=== PATIENT | female | born 1950 | race Caucasian/White ===

== ENCOUNTER 2022-11-24 15:45 | Outpatient (CLI) | payer MEDICARE, OTHER, SELFPAY ==
--- NOTE | ~2022-11-24 | DEXA_ITS ---
Bone Density Report Name: RUBIN VARGAS Age: 72 Sex: Female Ethnicity: White Date of : 1950 Indication: postmenopausal; screening for osteoporosis; height loss; Referring Provider: BETTY SIMMONS Study: Bone densitometry was performed. Exam Date: November 24, 2022 Accession number: [id number] Bone Density: Region BMD T-score Z-score Classification AP Spine(L1-L4) 1.188 1.3 3.4 Normal Femoral Neck (Left) 0.905 0.5 2.3 Normal Total Hip (Left) 1.011 0.6 2.1 Normal Femoral Neck (Right) 0.857 0.1 1.9 Normal Total Hip (Right) 0.987 0.4 1.9 Normal Total Hip Mean 0.999 0.5 2.0 Normal World Health Organization criteria for BMD impression classify patients as: Normal (T-score at or above -1.0), Osteopenia (T-score between -1.0 and -2.5), or Osteoporosis (T-score at or below -2.5). 10-year Fracture Risk: FRAX not reported because: All T-scores for Spine Total, Hip Total, Femoral Neck at or above -1.0 Clinical Information Provided by Patient: Patient maximum height was 66 Menopause Age: 49 No regular weight bearing exercise Drinks caffeinated beverages Onset of menses at age 13 Number of children 1 Impression: The patient has normal bone mass. Discussion: BONE DENSITY IS ABOVE THE MINIMUM DESIRABLE LEVEL AT ALL SKELETAL SITES TESTED. This patient?s bone mineral density is above the minimum desirable level (T-score -1.0 or better) at all sites measured. The patient should follow a healthful lifestyle (good nutrition with adequate calcium and vitamin D, and appropriate weight-bearing exercise). Follow-Up: Consider repeating this study in 5 years or sooner if there is some new clinical indication. Reported by: RAFAT on 11/24/2022 4:18:00 PM. Reviewed, dictated and finalized at location [facility]
== END 2022-11-24 15:46 | disposition home or self-care (01) ==
PROVIDERS: PCP Physician Assistant Medical; Visit Provider Internal Medicine Endocrinology, Diabetes & Metabolism
DX: Z78.0 Asymptomatic menopausal state (principal)
CPT/HCPCS: 77080

== ENCOUNTER 2023-04-08 04:07 | Day surgery (SDC) | payer MEDICARE, OTHER, SELFPAY ==
[2023-03-11 08:45] VITALS: BMI 28.8
--- NOTE | 2023-04-06 09:16 | SUR.PREOP ---
Patient called regarding upcoming procedure. Reviewed preop instructions, appointment times, and procedure prep.
[2023-04-08 06:48] VITALS: BP 168/68; PULSE 77; RESP 16; TEMP 36.6; O2SAT 100
[2023-04-08] MEDS: LACTATED RINGERS 1,000 ML 150 ML IV CONT (07:02)
[2023-04-08 07:04] LABS: Glucose Point of Care 130 mg/dl (65-105)
--- NOTE | 2023-04-08 07:33 | WPDANESEPPF ---
Anes - Initial Pre Proc Eval Procedure: Operation Date: 04/08/23 08:00 Proposed Procedures p Screening Colonoscopy - Matt Augustine MD Date/Time: 04/08/23 07:33 Surgeon: Matt Augustine MD Pre Op Diagnosis: neoplasm screening Patient Data Age: 73 Gender: F Height: 1.65 m Weight: 78.1 kg Last Vital Signs Temp 97.8 F 04/08/23 06:48 Pulse 77 04/08/23 06:48 Resp 16 04/08/23 06:48 BP 168/68 H 04/08/23 06:48 Pulse Ox 100 04/08/23 06:48 O2 Del Method Room Air 04/08/23 06:48 Allergies Allergy/AdvReac Type Severity Reaction Status Date / Time No Known Allergies Allergy Verified 04/08/23 06:44 Home Medications Medication Instructions Recorded Confirmed Type aspirin 81 mg tablet,delayed 81 mg PO DAILY 03/31/19 04/08/23 History release (Adult Low Dose Aspirin) multivitamin 1 tablet PO DAILY 03/31/19 04/08/23 History cholecalciferol (vitamin D3) 100 100 mcg PO DAILY 01/28/22 04/08/23 History mcg (4,000 unit) tablet echinacea 500 mg capsule 50 mg PO BID 01/28/22 04/08/23 History quercetin 500 mg capsule 500 mg PO DAILY 01/28/22 04/08/23 History dapagliflozin propanediol 10 mg 10 mg PO DAILY 90 days #90 tabs 09/01/22 04/08/23 Rx tablet semaglutide 1 mg/dose (4 mg/3 mL) 1 mg (0.75 mL) subcut WEEKLY 09/01/22 04/08/23 Rx subcutaneous pen injector days #9.75 mL irbesartan 300 mg tablet See Rx Instructions .Route 02/12/23 04/08/23 Rx .COMPLEX #90 tabs gabapentin 100 mg capsule See Rx Instructions .Route 02/17/23 04/08/23 Rx .COMPLEX #30 caps metoprolol succinate 25 mg See Rx Instructions .Route 02/17/23 04/08/23 Rx tablet,extended release 24 hr .COMPLEX #90 tabs rosuvastatin 5 mg tablet 5 mg PO DAILY #90 tabs 02/17/23 04/08/23 Rx Laboratory Tests 04/08/23 07:01 POC Capillary Glucose 130 H mg/dl (65-105) Patient hx anesthesia problems: none Family hx anesthesia problems: none Results Review: All pre-operative results and documents have been reviewed as part of the pre-operative evaluation. [facility] Past Medical History Medical History Chest pain in adult Diabetes 1.5, managed as type 2 Diabetes mellitus DE LA PAZ (dyspnea on exertion) Essential hypertension Hypersomnia Obesity (BMI 30.0-34.9) Palpitations with regular cardiac rhythm Screening for colon cancer URI (upper respiratory infection) Family History Family History Father Diabetes mellitus Family history of cardiovascular disease Mother Hypertension Cerebrovascular accident Grandparent Hypertension Family history of cardiovascular disease Social History Social History Smoking packs per day: 1.5 Smoking cigarettes per day: 30.0 Years smoked: 20 Smoking pack-years: 30.00 Smoking status: Former smoker Tobacco type: cigarettes Smoking end date: 05/20/82 Alcohol intake: current Drinks per week: 1 Substance use: never Substance use type: does not use Lack of Transportation: No Lack of Food: Never True Current Housing: I Have Housing Concerned About Future Housing: No Difficulty Paying Gas/Electric Bills: No Difficulty Paying for Meds: No Currently Unemployed: No Difficulty w/ Childcare or Family Care: No Living arrangements: with family Occupation/Education: retired Gender identity (if verbalized by the patient): Female Sexual Orientation (if Verbalized by the Patient): Straight or Heterosexual Spiritual care concerns: No Anes - Eval Final PreProcedure Day of Procedure 04/08/23 07:33 Patient weight: normal Heart: regular rate and rhythm Lungs: clear to auscultation Airway: Mallampati scale class II Neurological: alert and oriented Last oral intake: >/= 8 hours ASA classification: III Emergent: no Anesthetic plan: proceed Anesthesia type and monit
--- NOTE | 2023-04-08 07:57 | PM.HPGS ---
History of Present Illness History of Present Illness Consent: Risks, benefits, and alternatives have been discussed and questions answered. Patient agrees to proceed with procedure. Chief complaint: neoplasm screening Narrative: Samara Gordon is a 73 year old female with screening colonoscopy, last one 10 years ago Review of Systems Constitutional: Constitutional: Denies headache(s) and Denies weakness Eyes: Eyes: Denies blurry vision ENT: Reports Normal hearing present, Denies headache(s) and Denies neck pain Cardiovascular: Cardiovascular: Denies chest pain and Denies dyspnea Respiratory: Respiratory: Denies dyspnea Gastrointestinal: Gastrointestinal: Reports no additional gastrointestinal complaints Genitourinary: Genitourinary: Denies dysuria Musculoskeletal: Musculoskeletal: Denies neck pain Integumentary/Breasts: Skin/Breast: Denies dry skin Neurologic: Reports Normal hearing present, Denies headache(s) and Denies weakness Psychiatric: Psychiatric: Denies anxiety Endocrine: Endocrine: Denies change in body appearance Hematologic/Lymphatic: Hematologic/Lymphatic: Denies easy bleeding Allergic/Immunologic: Allergic/Immunologic: Denies urticaria PMFSH Past Medical History Medical History Chest pain in adult Diabetes 1.5, managed as type 2 Diabetes mellitus DE LA PAZ (dyspnea on exertion) Essential hypertension Hypersomnia Obesity (BMI 30.0-34.9) Palpitations with regular cardiac rhythm Screening for colon cancer URI (upper respiratory infection) Family History Family History Father Diabetes mellitus Family history of cardiovascular disease Mother Hypertension Cerebrovascular accident Grandparent Hypertension Family history of cardiovascular disease Social History Social History Smoking packs per day: 1.5 Smoking cigarettes per day: 30.0 Years smoked: 20 Smoking pack-years: 30.00 Smoking status: Former smoker Tobacco type: cigarettes Smoking end date: 05/20/82 Alcohol intake: current Drinks per week: 1 Substance use: never Substance use type: does not use Lack of Transportation: No Lack of Food: Never True Current Housing: I Have Housing Concerned About Future Housing: No Difficulty Paying Gas/Electric Bills: No Difficulty Paying for Meds: No Currently Unemployed: No Difficulty w/ Childcare or Family Care: No Living arrangements: with family Occupation/Education: retired Gender identity (if verbalized by the patient): Female Sexual Orientation (if Verbalized by the Patient): Straight or Heterosexual Spiritual care concerns: No Meds Home Medications and Allergies Home Medications Medication Instructions Recorded Confirmed Type aspirin 81 mg tablet,delayed 81 mg PO DAILY 03/31/19 04/08/23 History release (Adult Low Dose Aspirin) multivitamin 1 tablet PO DAILY 03/31/19 04/08/23 History cholecalciferol (vitamin D3) 100 100 mcg PO DAILY 01/28/22 04/08/23 History mcg (4,000 unit) tablet echinacea 500 mg capsule 50 mg PO BID 01/28/22 04/08/23 History quercetin 500 mg capsule 500 mg PO DAILY 01/28/22 04/08/23 History dapagliflozin propanediol 10 mg 10 mg PO DAILY 90 days #90 tabs 09/01/22 04/08/23 Rx tablet semaglutide 1 mg/dose (4 mg/3 mL) 1 mg (0.75 mL) subcut WEEKLY 09/01/22 04/08/23 Rx subcutaneous pen injector days #9.75 mL irbesartan 300 mg tablet See Rx Instructions .Route 02/12/23 04/08/23 Rx .COMPLEX #90 tabs gabapentin 100 mg capsule See Rx Instructions .Route 02/17/23 04/08/23 Rx .COMPLEX #30 caps metoprolol succinate 25 mg See Rx Instructions .Route 02/17/23 04/08/23 Rx tablet,extended release 24 hr .COMPLEX #90 tabs rosuvastatin 5 mg tablet 5 mg PO DAILY #90 tabs 02/17/23 04/08/23 Rx Allergies Allergy/AdvReac Type Severity Reaction Status D
[2023-04-08 08:17] VITALS: BP 127/68; PULSE 72; RESP 22; O2SAT 100
[2023-04-08 08:27] VITALS: BP 129/102; PULSE 68; RESP 18; O2SAT 100
[2023-04-08 08:37] VITALS: BP 122/70; PULSE 67; RESP 17; O2SAT 100
== END 2023-04-08 08:45 | disposition home or self-care (01) ==
PROVIDERS: PCP Family Medicine; Visit Provider Internal Medicine Gastroenterology
PROC: 0DJD8ZZ Inspection of Lower Intestinal Tract, Via Natural or Artificial Opening Endoscopic (ICD-10-PCS; CPT 45378; principal; 2023-04-08 08:00)
DX: Z12.11 Encounter for screening for malignant neoplasm of colon (principal); E11.9 Type 2 diabetes mellitus without complications; I10 Essential (primary) hypertension; G47.10 Hypersomnia, unspecified; Z79.82 Long term (current) use of aspirin; Z79.85 Long-term (current) use of injectable non-insulin antidiabetic drugs; Z87.891 Personal history of nicotine dependence; Z82.49 Family history of ischemic heart disease and other diseases of the circulatory system
CPT/HCPCS: G0121; 82948; J2704; J7120

== ENCOUNTER 2025-03-16 12:53 | Outpatient (CLI) | payer MEDICARE, OTHER, SELFPAY ==
--- NOTE | ~2025-03-16 | CT_ITS ---
CT abdomen pelvis w con INDICATION:GROSS HEMATURIA . COMPARISON: None. TECHNIQUE: Axial images of the abdomen and pelvis were obtained following infusion of 100 mL Isovue 300. Dose optimization technique was utilized. FINDINGS: The lung bases are clear. The liver parenchyma is unremarkable. No intrahepatic mass or ductal dilatation is evident. The gallbladder is unremarkable. The pancreas and spleen are normal in appearance. The adrenal glands are symmetric in size. The kidneys demonstrate symmetric uptake and excretion of contrast. Peripelvic cysts and parenchymal cysts are present bilaterally. There is no solid mass. There is no hydronephrosis. The stomach and bowel loops are unremarkable. The appendix is normal in appearance. The bladder and rectum are normal. No free intraperitoneal fluid or air is evident. There is no significant retroperitoneal lymphadenopathy. The aorta, visceral vessels and renal arteries demonstrate normal caliber and patency. The lower thoracic and lumbar vertebrae are in normal alignment. IMPRESSION: No acute abnormality is noted in the abdomen and pelvis. Peripelvic cysts and parenchymal cysts noted in the kidneys bilaterally. No solid mass seen. All CT scans at this facility are performed using low dose modulation techniques as appropriate to perform exam including the following: automated exposure control; use of iterative reconstruction technique; adjustment of the mA and/or kV according to patient size (this includes techniques or standardized protocols for targeted exams where dose is matched to indication/reason for exam). Reviewed, dictated and finalized at location S. UCTION LINE MECHANIC IMPRESSION: No acute abnormality is noted in the abdomen and pelvis. Peripelvic cysts and parenchymal cysts noted in the kidneys bilaterally. No regina id mass seen. All CT scans at this facility are performed using low dose modulation techniqu es as appropriate to perform exam including the following: automated exposure c ontrol; use of iterative reconstruction technique; adjustment of the mA and/or kV according to patient size (this includes techniques or standardized protocol s for targeted exams where dose is matched to indication/reason for exam).
--- OUTSIDE RECORDS SUMMARY | 2025-03-16 12:59 | XMS_ITS | Encounter Summary ---
Author Organization [facility] Address [address] [place] [address] Care Team Providers Care Dermatology Teacher Name Role Phone Unavailable Primary Care Provider Unavailabl e Encounter Details Date Type Department Care Team (Late st Contact Info) Description 12/11/2004 Outpatient Historical [place] [address] [address] SCREENING MAMM-MAILG NEOPL NEC (Primary Dx) Social History Tobacco Use Types Packs/Day Years Used Date Smoking Tobacco: Never Assessed Comments Unknown Sex and Gender Information Value Date Recorded Sex Assigned at Not on file Legal Sex Female 5:22 AM [employer] Gender Identity Not on file Sexual Orientation Not on file documented as of this encounter Plan of Treatment Not on file documented as of this encounter Visit Diagnoses Diagnosis Other screening mammogram- Primary documented in this encounter
--- OUTSIDE RECORDS SUMMARY | 2025-03-16 12:59 | XMS_ITS | Clinical Summary ---
Author Organization [facility] Address [address] Attn: Epic Prelude ADT SHRUTI SANDERS [address] Care Team Providers Care Stock Puller Name Role Phone Unavailable Primary Care Provider Unavailabl e Social History Tobacco Use Types Packs/Day Years Used Date Smoking Tobacco: Never Assessed Comments Unknown Sex and Gender Information Value Date Recorded Sex Assigned at Not on file Legal Sex Female 5:22 AM [employer] Gender Identity Not on file Sexual Orientation Not on file Plan of Treatment Health Maintenance Due Date Last Done Comments DTAP/TDAP/TD VACCINES (1 - Tdap) 1971 BREAST CANCER SCREENING 1992 COLORECTAL SCREENING 1997 Colorectal Cancer Screening 1997 FIT-DNA Q 3 years 1997 FIT/FOBT Q 1 year 1997 Flex Sig/CT Colonography Q 5 years 1997 PNEUMOCOCCAL VACCINE 50+ YEARS (1 of 1 - PCV) 04/03/19 03 ZOSTER VACCINE (1 of 2) 2002 OSTEOPOROSIS SCREENING 2017 INFLUENZA VACCINE (#1) 2024 RSV VACCINE (60+ or ) (1 - 1-dose 75+ series) 2027
--- OUTSIDE RECORDS SUMMARY | 2025-03-16 12:59 | XMS_ITS | Continuity of Care Document ---
Author Organization [employer], [facility] Kiran Mares Address [address] [place] [address] Care Team Providers Care Home Worker Name Role Phone SHERRILL LAI Primary Care Provider [phone] SHERRILL LAI Referring Provider [phone] Assessment Encounter Date Assessment Date Assessment LastModified by Organization Details LastModified Time 01/04/2025 01/04/2025 The patient has resolved left knee pain she has mild primary osteoarthritis she is continuing with her home exercise program and has been instructed by formal physical therapy on what to do daily. She is continuing with diclofenac 75 mg b.i.d. if she wants to she can try to wean off of that see how she feels without it. If her pain starts to return I have advised her to continue it. We could do another shot of cortisone in 6 weeks if necessary hopefully she will get long chain beamer relief. We also have talked about gel shots previously. She voiced understanding agrees above plan I will see her back as needed she will call for any further problems difficulties or questions. [email or web address] Not available 01/04/2025 14:27:09 Plan of Treatment Reminders Order Date Submit Date Provider Last Modified By Organization Details Last Modified Time Details Appointments None record ed. Lab None record ed. Referral None record ed. Procedures None record ed. Surgeries None record ed. Imaging None record ed. Medication Orders None record ed. Patient TargetsNo targets recorded. Patient InstructionsNo instructions recorded. Reason for Referral None Reported. Problems Name Problem SNOMED Code Status Onset Date Resolution Date Notes Provider Name and Address Organization Details Recorded Time Pain of left knee joint 7435114310672 07 Active 2024 RUY Zavala, [employer] 5 13:42:59 Osteoarthri tis of left knee joint 5816269733218 09 Active 2024 SHIV Gage [address], [place], [address], [employer] 14:06:18 Problem Notes None recorded. Medical Equipment None Reported. Allergies No known drug allergies Medications Name Sig Start Date Stop Date Status Note LastModified by Organization Details LastModified Time bupivacaine HCl 0.5 % (5 mg/mL) injection solution Take 20 mg by injection route. 2024 active Not Available Not Available Not Avai lable tramadol 50 mg tablet TAKE 1 TABLET BY MOUTH TWICE A DAY NEEDED FOR PAIN 11/23 completed Not Available Not Available Not Available Kenalog 10 mg/mL suspension for injection Take 20 mg by injection route. 2024 active [facility]: [phone] Not Available Not Available Not Available gabapentin 300 mg capsule PLEASE SEE ATTACHED FOR DETAILED DIRECTION S active Not Available Not Available No t Available diclofenac sodium 75 mg tablet,nanette yed release TAKE 1 TABLET BY MOUTH TWICE A DAY 2024 active Not Available Not Available Not Avai lable diclofenac sodium 50 mg tablet,nanette yed release TAKE 1 TABLET BY MOUTH EVERY DAY FOR 30 DAYS 11/23 completed Not Available Not Available Not Available metoprolol succinate ER 25 mg tablet,exte nded release 24 hr TAKE 1 TABLET BY MOUTH EVERY DAY active Not Available Not Available No t Available irbesartan 300 mg tablet TAKE 1 TABLET BY MOUTH EVERY DAY active Not Available Not Available No t Available rosuvastati n 5 mg tablet TAKE 1 TABLET BY MOUTH EVERY DAY active Not Available Not Available No t Available nitrofurant oin monohydrate /macrocryst als 100 mg capsule TAKE 1 CAPSULE BY MOUTH EVERY 12 HOURS FOR 3 DAYS. MUST TAKE WITH A MEAL/FOOD 11/23 completed Not Available Not Available Not Available dapaglifloz in propanediol 10 mg tablet TAKE 1 TABLET BY MOUTH EVERY DAY active Not Available Not Available No t Available Ozempic 1 mg/dose (4 mg/3 mL) subcutaneou s pen injector INJECT 1 MG (0.75 ML) SUBCUTANE OUSLY WEEKLY 11/23 completed Not Available Not Available Not Available Ozempic 2 mg/dose (8 mg/3 mL) subcutaneou s pen injector INJECT 2 MG (0.75 ML) SUBCUTANE OUSLY WEEKLY active Not Available Not Available No t Available Vitals Date Recorded Body height Body mass index (BMI) Body weight Provider Name and Address Organization Details Last Updated DateTime 01/04/2025 166.37 cm 27 kg/m2 39692.74 g Juani OliverRUY young [facility] [employer] 01/04/2025 14:09:26 Social History Question Answer Notes LastModified by Organizat [employer] Details LastModified Time Tobacco Smoking Status Former Smoker Juani OliverRUY young null, [facility] [employer] 11/23/2024 13:48:05 When Did You Quit Smoking? 18+yearssin félix brownlee Quit In 1982 After Smoking 1.5 Ppd For 16 Yrs Information not available 11/23/2024 What Was The Date Of Your Most Recent Tobacco Screening? 01/04/2025 Information not available 01/04/2025 Sex: Unknown Functional Status Question Answer Note LastModified by Organizat ion Details LastModified Time What is your level of alcohol consumption? Occasional Information not available 11/23/2024 Mental Status None recorded. Family History Relationship Description Onset Age of this Age Resolved Age Notes LastModified by Organization Details LastModified Time Father Heart disease Not available 2024 13:46:00 Father Diabetes mellitus Not available 2024 13:47:11 Mother History of cerebrovascu lar accident Not available 06/2024 13:46:40 Mother Hypertensive disorder Not available 2024 13:46:59 Medical History Condition Response DIABETES, TYPE Y HYPERTENSION Y Gynecological HistoryNo gynecological history recorded. Obstetrics History GPAL:G 0 P 0 0 0 0 Past Encounters Encounter ID Performer Location Encounter Start Date Encounter Closed Date Diagnosis/Indication Diagnosis SNOMED-CT Code Diagnosis ICD10 Code Diagnosis IMO Codes Diagnosis Note [id number] Bill Doty MD [facility] [address] [place] [address] 01/04/2025 13:56:00 01/04/2025 14:30:33 Osteoarthritis of left knee joint 0857231318 03413 M17.12 6659136 Pain of le ft knee joint 0027582055 60454 M25.562 [id number] Health Concerns Section Related Observation LastModified by Organization Detai ls LastModified Time None Recorded Concern Status LastModified by Organization Details LastModified Time None Recorded Payers Encounter Date Sequence Insurance Name Policy Number Policy Soares Covered Member ID Soares Member ID Guarantor Name 01/04/2025 1 [place] Samara Gordon [id number] Samara Sway 01/04/2025 2 [employer] (POS) [id number] Samara Estrada Sway [id number] Samara Sway Notes Date Note Type Note Provider Name and Address Organization Details Recorded Time 01/04/2025 text/html The patient returns for recheck of her left knee. I saw her 6 weeks ago we did a shot of cortisone ordered physical therapy and diclofenac 75 mg b.i.d.. She states this has helped tremendously she now has no pain at all. She states she is very pleased with the treatment results. Her x-rays showed mild narrowing of the medial compartment in the patellofemoral articulation of the left knee. She had had no trauma or injury. She was having quite a bit of pain and tried home treatment on her own without significant relief. Previously her pain was 5 on a scale of 1-10 now it is 0 she comes in today for recheck status post treatment. SHIV Gage [address], [place], [address], [facility] [employer] 01/04/2025 14:27:33 OBGyn Episode No OBEpisode recorded.
--- OUTSIDE RECORDS SUMMARY | 2025-03-16 12:59 | XMS_ITS | Clinical Summary ---
Author Organization [facility] Address [address] [place] [address] Care Team Providers Care Synthetic Gem Press Operator Name Role Phone Ayo Sauer MD Primary Care Provider [phone] Allergies No known active allergies Medications No known medications Encounters Date Type Department Care Team Description 02/22/2025 12:52 PM SLIVER CUTTER - 02/22/2025 11:59 PM SLIVER CUTTER Hospital Encounter [facility] [address] [place], [place] [id number] Antoinette Jessica NP Discharge Disposition: Home or Self Care (Routine Discharge) 02/22/2025 Travel from Last 3 Months Social History Tobacco Use Types Packs/Day Years Used Date Smoking Tobacco: Former Smokeless Tobacco: Never Alcohol Use Standard Drinks/Week Comments Yes 0 (1 standard drink = 0.6 oz pur e alcohol) socially Comments No Sex and Gender Information Value Date Recorded Sex Assigned at Female 02/22/2025 9:34 AM SLIVER CUTTER Legal Sex Female 8:11 PM CDT Gender Identity Not on file Sexual Orientation Not on file Last Filed Vital Signs Vital Sign Reading Time Taken Comments Blood Pressure 148/61 06/08/2020 5:11 PM CDT Pulse 77 06/08/2020 5:11 PM CDT Temperature 37.3 C (99.1 F) 06/08/2020 5:11 PM CDT Respiratory Rate 16 06/08/2020 5:11 PM CDT Oxygen Saturation 97% 06/08/2020 5:11 PM CDT Inhaled Oxygen Concentration - - Weight 83.9 kg (185 lb) 06/08/2020 5:11 PM CDT Height 167.6 cm (5' 6) 06/08/2020 5:11 PM CDT Body Mass Index 29.86 06/08/2020 5:11 PM CDT Plan of Treatment Health Maintenance Due Date Last Done Comments Colorectal Cancer Screening Colonoscopy (10 Years) 1952 Hepatitis C 1970 DTaP, Tdap and Td Vaccines ( 1 - Tdap) 1971 Zoster Vaccines (1 of 2) 2002 Annual Medicare Wellness Visit 2017 Dexa Scan (General) 2017 Pneumococcal Vaccine: 50+ Years (2 of 2 - PCV20 or PCV21) 12/22/2019 12/21/2018 Mammogram Screening 06/24/2023 06/23/2021 COVID-19 Vaccine (3 - 2024-2 6 season) 2024 06/30/2020, 06/06/2020 Influenza Adult (#1) 2024 01/29/2023, 12/21/2018 RSV Immunization or 60+ Years (1 - 1-dose 75+ series) 2027 Hepatitis A Vaccines Aged Out No long er eligible based on patient's age to complete this topic Meningococcal B Vaccine Aged Out No l onger eligible based on patient's age to complete this topic Meningococcal Vaccine Aged Out No andry shakir eligible based on patient's age to complete this topic RSV Immunizations Under 20 Months Aged Out No longer eligible b ased on patient's age to complete this topic Procedures Procedure Name Priority Date/Time Associated Diagnosis Comments CT ABD+PEL WO CON STAT 02/22/2025 1:1 8 PM SLIVER CUTTER Flank pain, unspecified side MG SCREENING W DEYVI FRED DIGI Routine 06/23/2021 9:12 AM CDT Visit for screening mammogram from Last 3 Months or Most Recently Relevant to Health Maintenance Results * CT ABD+PEL WO CON (02/22/2025 1:18 PM SLIVER CUTTER) Anatomical Region Laterality Modality Abdomen Computed Tomogra phy 02/22/2025 1:46 PM SLIVER CUTTER Impressions 02/22/2025 2:43 PM SLIVER CUTTER IMPRESSION: 1. Interval development of mild edematous appearance to the inferior left kidney with mild adjacent fatty infiltration. May be due to mild pyelonephritis. 2. Stable moderate prominence of the left renal pelvis. Possibility of left UPJ stenosis is a consideration. 3. Mild interval growth of 4 mm calculus in lower pole right kidney. Punctate nonobstructing calculus in lower pole left kidney. 4. Moderate coronary artery calcifications. Referred By: ANTOINETTE JESSICA Interpreted By: Cleveland Torres MD, 02/22/2025 1:46 PM Narrative 02/22/2025 2:43 PM SLIVER CUTTER [facility] [address] [facility] [place] [address] EXAMINATION: CT Abdomen and Pelvis without contrast EXAM DATE/TIME: 02/22/2025 12:59 PM REASON FOR EXAM: Flank pain Low back pain with dysuria for one week. History of renal calculi COMPARISON: 06/12/2020 TECHNIQUE: Axial imaging of the abdomen and pelvis was obtained without intravenous contrast. A dose lowering technique was used for this procedure, which may include, but is not limited to, dose reduction technique, automated exposure control, iterative reconstruction, ALARA (As Low As Reasonably Achievable), or Image Gently techniques. FINDINGS: Abdomen: Bilateral peripelvic cysts are similar, greater on the left side. Interval development of mild edematous appearance to the inferior left kidney with mild adjacent fatty infiltration. May be due to mild pyelonephritis.. Stable moderate prominence of the left renal pelvis. Possibility of left UPJ stenosis is a consideration. Mild interval growth of 4 mm calculus in lower pole right kidney. Punctate nonobstructing calculus in lower pole left kidney.. Slight interval increase in size of simple appearing 1.3 cm cyst within medial and superior right kidney.. Normal adrenals. Stomach and duodenum are unremarkable. Spleen is unremarkable. Gallbladder partially filled and grossly unremarkable. Pancreas grossly unremarkable. Hepatic parenchyma are within normal limits with no evidence of intrahepatic biliary dilatation or mass within the limitations of a noncontrast study. No mesenteric lymphadenopathy or evidence of small bowel obstruction. No free fluid or free air. No evidence of retroperitoneal lymphadenopathy. No evidence of an abdominal aortic aneurysm. Scattered fecal material and gas throughout the colon without evidence of mass or dilatation. Few scattered diverticuli without diverticulitis Appendix not inflamed Pelvis: Low volume urinary bladder without gross abnormality. Uterus with similar small calcified uterine fibroids no adnexal lesions. On bone windows, no evidence of suspicious skeletal lesion or acute compression fracture deformity. Limited evaluation of the lower thorax demonstrates no acute abnormality.. Moderate coronary artery calcifications. Procedure Note Cleveland Torres MD - 02/22/2025 [facility] [address] [place] [address] EXAMINATION: CT Abdomen and Pelvis without contrast EXAM DATE/TIME: 02/22/2025 12:59 PM REASON FOR EXAM: Flank pain Low back pain with dysuria for one week. History of renal calculi COMPARISON: 06/12/2020 TECHNIQUE: Axial imaging of the abdomen and pelvis was obtained withoutintravenous contrast. A dose lowering technique was used for this procedure, which may include,but is not limited to, dose reduction technique, automated exposurecontrol, iterative reconstruction, ALARA (As Low As ReasonablyAchievable), or Image Gently techniques. FINDINGS: Abdomen: Bilateral peripelvic cysts are similar, greater on the left side.Interval development of mild edematous appearance to the inferior leftkidney with mild adjacent fatty infiltration. May be due to mildpyelonephritis.. Stable moderate prominence of the left renal pelvis. Possibility of leftUPJ stenosis is a consideration. Mild interval growth of 4 mm calculus in lower pole right kidney.Punctate nonobstructing calculus in lower pole left kidney.. Slightinterval increase in size of simple appearing 1.3 cm cyst within medialand superior right kidney.. Normal adrenals. Stomach and duodenum are unremarkable. Spleen is unremarkable. Gallbladder partially filled and grossly unremarkable. Pancreas grossly unremarkable. Hepatic parenchyma are within normal limits with no evidence ofintrahepatic biliary dilatation or mass within the limitations of anoncontrast study. No mesenteric lymphadenopathy or evidence of small bowel obstruction. Nofree fluid or free air. No evidence of retroperitoneal lymphadenopathy. No evidence of an abdominal aortic aneurysm. Scattered fecal material and gas throughout the colon without evidence ofmass or dilatation. Few scattered diverticuli without diverticulitis Appendix not inflamed Pelvis: Low volume urinary bladder without gross abnormality. Uteruswith similar small calcified uterine fibroids no adnexal lesions. On bone windows, no evidence of suspicious skeletal lesion or acutecompression fracture deformity. Limited evaluation of the lower thorax demonstrates no acute abnormality..Moderate coronary artery calcifications. IMPRESSION: 1. Interval development of mild edematous appearance to the inferior leftkidney with mild adjacent fatty infiltration. May be due to mildpyelonephritis. 2. Stable moderate prominence of the left renal pelvis. Possibility ofleft UPJ stenosis is a consideration. 3. Mild interval growth of 4 mm calculus in lower pole right kidney.Punctate nonobstructing calculus in lower pole left kidney. 4. Moderate coronary artery calcifications. Referred By: ANTOINETTE JESSICA Interpreted By: Cleveland Torres MD, 02/22/2025 1:46 PM us Antoinette Jessica ASSISTANT BUSINESS MANAGER CT Final Result * MG SCREENING W DEYVI FRED DIGI (06/23/2021 9:12 AM CDT) Anatomical Region Laterality Modality Breast Bilateral Mammography 06/23/2021 11:1 7 AM CDT Impressions 06/23/2021 11:32 AM CDT IMPRESSION: 1. No mammographic evidence of malignancy. 2. BI-RADS Category 1 - negative. MQSA BI-RADS Categories: Category 0 - needs additional imaging evaluation. Category 1 - negative. Category 2 - benign findings. Category 3 - probably benign findings, but short interval follow-up is recommended. Category 4 - suspicious abnormality and biopsy should be considered though the lesion may well be benign. Category 5 - highly suggestive of malignancy and appropriate action should be taken. A) A negative report should not delay a biopsy if a dominant or clinically suspicious mass is present. B) Adenosis and dense breasts may obscure an underlying neoplasm. C) Study interpreted with computer aided detection. Ordered By: HIREN GUERRA Interpreted By: Ana Torres, 06/23/2021 11:17 AM Narrative 06/23/2021 11:32 AM CDT IMAGING STUDIES: Bilateral screening mammograms with computer-aided detection with 2-D and 3-D imaging. Tomosynthesis. DATE: 06/23/2021 9:00 AM HISTORY: Visit for screening mammogram . Routine exam COMPARISON: 03/04/2015. TISSUE TYPE: The breast tissue is almost entirely fatty. FINDINGS: 1. Bilateral screening mammograms with computer detection with 2-D and 3-D imaging. Tomosynthesis. Fatty replaced fibroglandular tissue pattern is present. 2. No malignant microcalfcifications, new dominant masses, or architectural distortion. 3. No skin thickening or nipple retraction. Axillary regions are within normal limits. Hiren CHANEY MAMMO Final Result from Last 3 Months or Most Recently Relevant to Health Maintenance Insurance MEDICARE [facility] [address] [id number] Care Teams Synthetic Gem Press Operator Relationship Specialty Start Date End Date Ayo Sauer MD [address] [place] [id number] PCP - General INTERNAL MEDICINE 06/08/20
--- OUTSIDE RECORDS SUMMARY | 2025-03-16 12:59 | XMS_ITS | Data Portability ---
Author Organization [facility], Main Office Address [address] [place] [address] Care Team Providers Care Bilingual Operator Name Role Phone SHERRILL LAI Primary Care Provider SHERRILL LAI Referring Provider [phone] Assessment Encounter Date Assessment Date Assessment LastModified by Organization Details LastModified Time 11/23/2024 11/23/2024 The patient has mild primary osteoarthritis of the left knee joint with some narrowing of the medial compartment mildly narrowed in the patellofemoral articulation as well. Pain seems to be localized medially. We talked about treatment options today in detail she is requesting a shot of cortisone after discussing treatment options. Under sterile conditions I injected the patient's left knee joint in the office with 4 cc of 0.5% bupivacaine and 20 mg of Kenalog. The patient tolerated procedure well. I have also recommended a course of physical therapy and diclofenac 75 mg b.i.d. with food. We will give it 6 weeks I will see her back if her symptoms continue we could consider gel shot series we will see how she does with time. She voiced understanding and agreed with the above plan she will call for any further problems difficulties or questions. 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 We also have talked about gel shots previously. She voiced understanding agrees above plan I will see her back as needed she will call for any further problems difficulties or questions. Not available 01/04/2025 14:27:09 Plan of Treatment Reminders Order Date Submit Date Provider Last Modified By Organization Details Last Modified Time Details Appointments None recorded. Lab None recorded. Referral physical therapist referral - Please contact patient to schedule 2024 025 [facility] [place], [address], [place], [address], 10:32:44 Procedures injection/a spiration joint/bursa (PROC) 2024 025 [email or web address] In-Office Order, Internal Use Only DO Not Attach Compendium DO Not Attach Compendium, Do Not Delete/merge, [id number] 14:09:05 Surgeries None recorded. Imaging XR, knee, 3 view 2024 025 [email or web address] [facility], [address] [facility] [address], [place], [address], 14:29:49 Medication Orders diclofenac sodium 75 mg tablet,nanette yed release 2024 025 [email or web address] [id number], [address] [place] [address], [address], 14:10:26 bupivacaine HCl 0.5 % (5 mg/mL) injection solution 2024 025 [email or web address] [id number], [address] [place] [address], [address], 14:10:26 Kenalog 10 mg/mL suspension for injection 2024 025 [email or web address] [id number], [address] [place] [address], [address], 14:10:26 Patient TargetsNo targets recorded. Patient InstructionsNo instructions recorded. Reason for Referral Physical Therapist Referral for Pain of left knee joint Please contact patient to schedule Referring Physician: Johann Rudolph, Orthopedic Surgery, Encounter Date: 11/23/2024 Results Created Date Observation Date Name Description Value Unit Range Abnormal Flag Note LastModifiedBy Organization Detail LastModifiedTime 11/24/19 25 XR, knee, 3 view No observ ation record ed. [email or web address] [facility] [address] [facility] [address], [place], [address], 11/23/2024 14:06:05 Result Notes None recorded. Problems Name Problem SNOMED Code Status Onset Date Resolution Date Notes Provider Name and Address Organization Details Recorded Time Pain of left knee joint 6649093097835 07 Active 2024 Juani Hernandez CNA null, [place] 5 13:42:59 Osteoarthri tis of left knee joint 9756574054169 09 Active 2024 SHIV Gage [address] [facility], [facility] [address], [place], [address], [place] 14:06:18 Problem Notes None recorded. Medical Equipment [...] 2024 active [facility]: [phone] Not Available Not Available [...] and Address Organization Details Last Updated DateTime 11/23/2024 165.1 cm 27.1 kg/m2 15362.56 g Juani Hernandez CNA [place] 11/23/2024 13:44:34 Date Recorded Body height Body mass index (BMI) Body weight Provider Name and Address Organization Details Last Updated DateTime 01/04/2025 166.37 cm 27 kg/m2 36501.74 g Juani Hernandez CNA [place] 01/04/2025 14:09:26 Social History Question Answer Notes LastModified by Organizat ion Details LastModified Time Tobacco Smoking Status Former Smoker RUY Zavala [employer] [place] [employer] 11/23/2024 13:48:05 When Did You Quit Smoking? 18+yearssin celastcigar ette Quit In 1982 After Smoking 1.5 Ppd [...] ICD10 Code Diagnosis IMO Codes Diagnosis Note [id number] Bill Doty MD [facility] [address] [place] [address] 11/23/2024 13:24:30 11/23/2024 14:29:49 Pain of left knee joint 9510890540 45172 M25.562 091669 Osteoarthr itis of left knee joint 4676388799 36287 M17.12 [id number] Bill Doty MD [facility] [address] [place] [address] 01/04/2025 13:56:00 01/04/2025 14:30:33 Osteoarthritis of left knee joint 1405502176 16158 M17.12 3120782 Pain of le ft knee joint 9285814347 85926 M25.562 010641 Health Concerns Section Related Observation LastModified by Organization Detai ls LastModified Time None Recorded Concern Status LastModified by Organization Details LastModified Time None Recorded Advance Directives Directive None Recorded Payers Insurance Date Sequence Insurance Name Policy Number Policy Soares Covered Member ID Soares Member ID Guarantor Name 01/04/2025 2 [employer] (POS) [id number] Samara Gordon [id number] Samara Gordon 01/04/2025 1 [place] Samara Estrada Sway [id number] Samara Gordon Notes Date Note Type Note Provider Name and Address Organization Details Recorded Time 11/23/2024 text/html The patient is a 74-year-old female who presents with a three-month history of left knee pain medially. She states she did not have any specific trauma or injury. She is not sure why her knee started hurting. She has tried some occasional ibuprofen particularly at night before she goes to bed [id number]. This really has not helped much. She does not report any swelling or effusion no locking or catching. She states she has some tenderness on the medial joint line aching pain worse with activity somewhat relieved by rest. She states if she sits too long and gets up to get going she will have some start-up pain when she gets moving it is a little better. She does not have any significant crepitation no mechanical symptoms by her report. Occasionally she will walk with a limp. Despite conservative measures on her own at home including icing her symptoms continue she comes in today for initial evaluation treatment. She states her pain is about a 5 on a scale of 1-10 today. New past medical history sheet was reviewed and signed on intake sheet of today's date drug allergies current medications family social history previous surgical history 10 point review of systems was reviewed and discussed in detail today with the patient. SHIV Gage [address] [facility], [facility] [address], [place], [address], [place] [facility] 11/23/2024 14:10:20 01/04/2025 text/html The patient returns for recheck [...] recheck status post treatment. SHIV Gage [address] [facility], [facility] [address], [place], [address], [place] [facility] 01/04/2025 14:27:33 OBGyn Episode No OBEpisode recorded.
[2025-03-16 13:44] LABS: Estimated Glomerular Filt Rate > 60
== END 2025-03-16 12:54 | disposition home or self-care (01) ==
PROVIDERS: PCP Physician Assistant Medical; Visit Provider Urology
DX: R31.0 Gross hematuria (principal); N28.1 Cyst of kidney, acquired
CPT/HCPCS: 74177; Q9967